=== PATIENT | female | born 1955 | race Caucasian/White ===

== ENCOUNTER 2022-11-25 13:47 | Outpatient (AMB) | payer OTHER, SELFPAY ==
[2022-11-25 13:53] VITALS: BP 150/80; PULSE 101; O2SAT 98; BMI 37.3
--- NOTE | 2022-11-25 13:53 | A.OFFPC_ITS ---
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: Patient is a new patient here to establish care Classification Analyst Required: No Allergies bees Allergy (Uncoded 11/25/22 15:37) Seizure Medication List - Last Reconciled 11/25/22 by ASHLEY Urbano albuterol sulfate 90 mcg/actuation inhalation albuterol sulfate 90 mcg/actuation (Ventolin HFA) 2 puffs inhalation BID amlodipine 10 mg PO DAILY atorvastatin 10 mg PO DAILY bupropion HCl 150 mg PO BID epinephrine 0.3 mL IM ONCE PRN fluticasone propion-salmeterol 230-21 mcg/actuation (Advair HFA) 2 puffs inhalation BID levothyroxine 100 mcg PO DAILY lisinopril 20 mg PO DAILY metformin 500 mg PO BID Tobacco use date assessed: 11/25/22 Fall risk assessment: No Falls in past year Last assessed Fall Risk: 11/25/22 Dental Screening Dental Screen Date: 11/25/22 Did you have a dental visit in the last 12 months?: No Did you have a dental problem in the last 6 months where you did not have access to dental care?: No 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 Previous PCP in [place], last visit about 1 year ago per patient, does not remember the doctor's name. Medical history significant for depression, hyperlipidemia, hypertension, prediabetes, arthritis of both knees-followed by [facility], asthma, hypothyroidism, fluid in left knee joint-drained 6 months ago by [facility] - needs new referral, heart murmur-reports normal echocardiogram in 1999, cigarette nicotine dependence-smokes 1.5 packs per day-would like to have nicotine patch, seasonal allergies. 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 Patient denies shortness of breath or chest pain. Patient reports eye exam last year, she will call for another eye exam this year. Patient is accompanied by her . [facility] Surgical History H/O knee surgery H/O neck surgery Family History Mother Ovarian cancer Father Heart attack Social History Housing: Apartment Patient Tobacco Use Status: Current everyday Tobacco user Cigarette Packs Per Day: 1.5 service: No Current occupational status: unemployed Cognitive needs: Yes Hearing needs: No Vision needs: Yes Questionnaire PHQ-9 Over the last 2 weeks, how often have you been bothered by any of the following problems? 1. Little interest or pleasure in doing things: several days 2. Feeling down, depressed, or hopeless: several days 3. Trouble falling or staying asleep, or sleeping too much: not at all 4. Feeling tired or having little energy: not at all 5. Poor appetite or overeating: not at all 6. Feeling bad about yourself - or that you are a failure or have let yourself or your family down: not at all 7. Trouble concentrating on things, such as reading the newspaper or watching television: not at all 8. Moving or speaking so slowly that other people could have noticed. Or the opposite - being so fidgety or restless that you have been moving around a lot more than usual: not at all 9. Thoughts that you would be better off or of hurting yourself in some way: not at all Total score: 2 Depression Screening Interpretation: Negative 98613 - PHQ-9 Billing: Yes Source: Developed by Drs. Rubens Quinones, Laurie Reaves, Sal Dasilva and colleagues, with an educational yovani from [employer]. Thrive Questionnaire Date Thrive assessed: 11/25/22 I am a: Patient What is your living situation today?: I have a steady place to live Within the past 12 months, did the food you bought not last and you didn't have the money to get more?: Never true Within the past 12 months, did you worry whether your food would run out before you got money to buy more?: Never true Do you have trouble paying for medicines?: No Do you have trouble getting transportation to medical appointments?: No Do you have trouble paying your heating and electricity bill?: No Do you have trouble taking care of your child, family member or friend?: No Do you have trouble with day-to-day activities such as bathing, preparing meals, shopping, managing finances, etc.?: No Are you currently unemployed and looking for a job?: No Are you interested in more education?: No Currently or been in a relationship where the following occur: no concerns reported AUDIT C Alcohol Use Questionnaire (AUDIT-C) 1. How often do you have a drink containing alcohol?: Monthly or less 2. How many drinks containing alcohol do you have on a typical day when you are drinking?: 1 or 2 3. How often do you have six or more drinks on one occasion?: Never Total Score: 1 Score Reviewed/Action Taken: No DIANELYS-7 AMB Questionnaire DIANELYS-7 Date DIANELYS - 7 assessed: 11/25/22 Feeling nervous, anxious, or on edge: 1 = Several days Not being able to stop or control worryin = Several days Worrying too much about different things: 0 = Not at all Trouble relaxin = Not at all Being so restless that it is hard to sit still: 0 = Not at all Becoming easily annoyed or irritable: 0 = Not at all Feeling afraid as if something awful might happen: 0 = Not at all Total DIANELYS-7 score (0-4 normal; 5-9 mild; 10-14 moderate; 15-21 severe): 2 Source: Developed by Drs. Rubens Quinones, Laurie Reaves, Sal Dasilva and colleagues, with an educational yovani from [employer]. DIANELYS-7 Assessment Billing DIANELYS-7 Assessment Tool: DIANELYS-7 Assessment [id number] Review of Systems Const Denies body aches, Denies chills, Denies fever(s) and Denies headache(s) Eyes Denies change in vision ENT Denies dizziness, Denies otalgia, Denies headache(s), Denies nasal discharge, Denies sinus pain and Denies sore throat Card Denies chest pain, Denies edema, Denies lightheadedness and Denies dyspnea Resp Denies cough, Denies dyspnea and Denies wheezing GI Denies constipation, Denies diarrhea, Denies nausea and Denies vomiting Denies dysuria Musc Denies myalgias and Reports arthralgias Skin/Breast Denies rash Neuro Denies dizziness and Denies headache(s) Aller/Immun Denies wheezing Physical exam (Primary Care) Vital Signs: Last Vital Signs Pulse 101 H 11/25/22 13:53 BP 150/80 H 11/25/22 13:53 Pulse Ox 98 11/25/22 13:53 Oxygen Delivery Method Room Air 11/25/22 13:53 BMI result Body Mass Index 37.3 Tobacco/Smoking Status: Tobacco use Status Tobacco use date assessed 11/25/22 11/25/22 13:55 Patient Tobacco Use Status Current everyday Tobacco 11/25/22 15:27 PHQ-9: PHQ-9 Score PHQ-9: Total score 2 11/25/22 15:37 Depression Screening Interpretation: Negative Thrive Assessment: Date of Thrive Assessment Date Thrive assessed 11/25/22 11/25/22 13:55 Currently or been in a relationship where the following occur: no concerns reported Const Other: Ambulates with a cane General: cooperative and no acute distress Orientation/consciousness: patient oriented x3 HENMT Head: Yes normocephalic and Yes atraumatic Ears: TM's normal bilaterally Face and sinus: Yes sinuses nontender Mouth: oropharynx normal and moist mucous membranes Throat: Yes posterior oropharynx normal Eyes General: appearance normal, both eyes and all related structures Pupils: Equal, round and reactive pupils present EOM: EOMs intact bilaterally Neck Neck: Yes normal visual inspection, Yes full ROM and Yes no lymphadenopathy Thyroid: Thyroid normal Resp Effort & Inspection: normal respiratory effort and able to speak in complete sentences Auscultation: clear to auscultation bilaterally, no crackles, no rales, no rhonchi and no wheezes Cardio Rate: regular rate Rhythm: regular rhythm Heart sounds: S1 normal heart sound present, S2 normal heart sound present and Murmur heart sound present systolic GI Palpation (GI): Soft to palpation, not firm, nontender, no guarding, not rigid and no hepatosplenomegaly Auscultation: normal bowel sounds General: No CVA tenderness Back/Spine/Pelvis Back: No CVA tenderness Skin General skin exam: no rashes or lesions noted Neuro General: patient oriented x3 Cranial nerves: Yes Equal, round and reactive pupils present Extrem General: Yes full ROM and No edema Results AMB Hemoglobin A1c 2 AMB Hemoglobin A1c 6.0 % Last Edit by ELVA Cee on 11/25/22 15:40 Assessment and Plan Assessment & Plan (1) Seasonal allergies: Code(s): J30.2 - Other seasonal allergic rhinitis Plan: Continue cetirizine daily (2) Cigarette nicotine dependence: Code(s): F17.210 - Nicotine dependence, cigarettes, uncomplicated Plan: Encouraged smoking cessation Nicotine patch sent (3) Heart murmur: Code(s): R01.1 - Cardiac murmur, unspecified Plan: Will obtain echocardiogram (4) Fluid in left knee joint: Code(s): M25.462 - Effusion, left knee Plan: Continue to follow-up with [facility] - referral given (5) Hypothyroidism: Code(s): E03.9 - Hypothyroidism, unspecified Plan: Levothyroxine 100 mcg daily Will check thyroid blood work (6) Asthma: Code(s): J45.909 - Unspecified asthma, uncomplicated Plan: Stable Continue albuterol inhaler and Advair (7) Prediabetes: Code(s): R73.03 - Prediabetes Plan: A1c 6.0 today Continue metformin 500 mg b.i.d. Low-carbohydrate diet Patient will call for an eye exam (8) Hypertension: Code(s): I10 - Essential (primary) hypertension Plan: Goal BP equal or less than 140/90 Patient reports that she forgot to take her blood pressure medications this morning Continue lisinopril and amlodipine Low-sodium diet and weight loss (9) Hyperlipidemia: Code(s): E78.5 - Hyperlipidemia, unspecified Plan: Continue atorvastatin Low-cholesterol diet (10) Depression: Code(s): F32.A - Depression, unspecified Qualifiers: Depression Type: other depression Qualified Code(s): F32.89 - Other specified depressive episodes Plan: Stable with bupropion b.i.d. (11) Encounter to establish care: Code(s): Z76.89 - Persons encountering health services in other specified circumstances Plan Follow-up in 2 months for PE and labs Orders: Orders AMB Hemoglobin A1c Today Z13.9 - Encounter for screening, unspecified Vitamin D 25-OH Total Today R73.03 - Prediabetes Complete Blood Count Auto Diff Today Z76.89 - Persons encountering health services in other specified circumstances Microalbumin, Random (w Creat) Today R73.03 - Prediabetes Vitamin B12 and Folate Today Z76.89 - Persons encountering health services in other specified circumstances TSH reflex Free T4 Today E03.9 - Hypothyroidism, unspecified Lipid Panel Today E78.5 - Hyperlipidemia, unspecified Comprehensive [place]. Panel Fast Today R73.03 - Prediabetes CA echo transthoracic complete Today R01.1 - Cardiac murmur, unspecified Referrals Orthopedics Referral M17.0 - Bilateral primary osteoarthritis of knee, M25.462 - Effusion, left knee Medications: New nicotine 1 patch transdermal DAILY 28 ea 0RF F17.210 - Nicotine dependence, cigarettes, uncomplicated cetirizine (All Day Allergy (cetirizine)) 10 mg PO DAILY 90 tabs 0RF J30.2 - Ot her seasonal allergic rhinitis Coding Level of Care Code New Pt Level 4 (25778) Diagnoses Seasonal allergies J30.2 Cigarette nicotine dependence F17.210 Heart murmur R01.1 Fluid in left knee joint M25.462 Hypothyroidism E03.9 Asthma J45.909 Prediabetes R73.03 Hypertension I10 Hyperlipidemia E78.5 Other depression F32.89 Depression Type: other depression Encounter to establish care Z76.89 Additional Codes DIANELYS-7 Assessment Billing - DIANELYS-7 Assessment Tool: DIANELYS-7 Assessment [id number] ([id number])
[2022-11-25 15:56] VITALS: BP 140/70
== END 2022-11-25 16:01 | disposition home or self-care (01) ==
PROVIDERS: PCP Physician Assistant; Visit Provider Nurse Practitioner Family
DX: R73.03 Prediabetes (principal); J30.2 Other seasonal allergic rhinitis; F17.210 Nicotine dependence, cigarettes, uncomplicated; R01.1 Cardiac murmur, unspecified; M25.462 Effusion, left knee; E03.9 Hypothyroidism, unspecified; J45.909 Unspecified asthma, uncomplicated; I10 Essential (primary) hypertension; E78.5 Hyperlipidemia, unspecified; F32.89 Other specified depressive episodes
CPT/HCPCS: 83036; 99204

== ENCOUNTER 2023-01-19 13:50 | Outpatient (REF) | payer OTHER, SELFPAY ==
[2023-01-19 14:04] LABS: MANUAL DIFF FLAG NO
[2023-01-19 14:08] LABS: Basophils Percent Auto 0.2 % (0-2); Eosinophils Absolute Auto 0.1 X10*3/uL (0.0-0.4); Hematocrit 36.2 % (37.0-47.0); Hemoglobin 11.6 g/dl (12.0-16.0); Imm Gran Abs Auto 0.04 X10*3/uL (0.00-0.03); Imm Gran Pct Auto 0.4 % (0.0-0.4); Lymphocytes Absolute Auto 1.8 X10*3/uL (1.2-4.9); Lymphocytes Percent Auto 18.5 % (20-40); Mean Corpuscular Hemoglobin 25.2 pg (27.0-33.0); Mean Corpuscular Volume 78.7 fL (80.0-98.0); Mean Platelet Volume 8.8 fL (9.4-12.3); Monocytes Absolute Auto 0.6 X10*3/uL (0.1-1.2); Monocytes Percent Auto 5.8 % (2-11); Neutrophils Absolute Auto 7.1 x10*3/uL (2.0-8.3); Neutrophils Percent Auto 74.1 % (45-73); Platelet Count 346 X10*3/uL (160-400); Red Cell Distribution Width 15.1 % (11.0-16.0); White Blood Count 9.6 X10*3/uL (4.8-10.8)
[2023-01-19 14:48] LABS: Alanine Aminotransferase 40 U/L (0-31); Alkaline Phosphatase 129 U/L (39-117); Anion Gap 10 (12-20); Aspartate Amino Transferase 21 U/L (5-31); Bilirubin Total 0.5 mg/dL (0.0-1.0); Blood Urea Nitrogen 7 mg/dL (9-16); Carbon Dioxide 30 mmol/L (22-29); Chloride 106 mmol/L (96-108); Cholesterol 133 mg/dL (<200); Estimated Glomerular Filt Rate > 60; Glucose Fasting 132 mg/dL (60-99); HDL Cholesterol 44 mg/dL (>40); LDL Cholesterol Calculated 73 mg/dL (<100); Potassium 4.4 mmol/L (3.3-5.1); Sodium 142 mmol/L (135-145); Triglycerides 83 mg/dL (<150)
[2023-01-19 15:04] LABS: TSH reflex Free T4 < 0.01 uIU/mL (0.32-4.0); Vitamin D 25-OH Total 41.4 ng/mL (>30)
[2023-01-19 15:39] LABS: Free T4 (Free Thyroxine) 1.41 ng/dL (0.71-1.85)
[2023-01-19 15:47] LABS: Folate 13.5 ng/mL (> or = 4.0); Vitamin B12 859 pg/mL (200-900)
[2023-01-19 15:49] LABS: Creatinine Urine 49.34 mg/dL; Microalbumin Urine < 5.0 mg/L
== END 2023-01-19 13:51 | disposition home or self-care (01) ==
LOC: HO.LAB 13:50
PROVIDERS: PCP Nurse Practitioner Family; Visit Provider Nurse Practitioner Family
DX: R73.03 Prediabetes (principal); E78.5 Hyperlipidemia, unspecified; E03.9 Hypothyroidism, unspecified; Z76.89 Persons encountering health services in other specified circumstances
CPT/HCPCS: 36415; 80053; 80061; 82306; 82570; 82607; 82746; 84439; 84443; 85025

== ENCOUNTER 2023-01-26 11:25 | Outpatient (AMB) | payer OTHER, SELFPAY ==
--- NOTE | 2023-01-26 11:35 | MHC.PC.OV ---
Vital Signs 01/26/23 11:36 Height 5 ft 2 in Weight 191 lb BMI 34.9 BP 130/82 Blood Pressure Location Lt brachial Position Sitting Pulse 83 Pulse Source Pulse Oximeter Pulse Oximetry (%) 98 Oxygen Delivery Method Room Air Intake Visit Reasons: pe Intake Note: Patient is here today for a physical. Director Social Welfare Required: No Allergies bees Allergy (Uncoded 01/26/23 11:54) Seizure Medication List - Last Reconciled 01/26/23 by ASHLEY Urbano albuterol sulfate 90 mcg/actuation inhalation albuterol sulfate 90 mcg/actuation (Ventolin HFA) 2 puffs inhalation BID amlodipine 10 mg PO DAILY atorvastatin 10 mg PO DAILY bupropion HCl 150 mg PO BID cetirizine (All Day Allergy (cetirizine)) 10 mg PO DAILY epinephrine 0.3 mL IM ONCE PRN fluticasone propion-salmeterol 230-21 mcg/actuation (Advair HFA) 2 puffs inhalation BID levothyroxine 100 mcg PO DAILY lisinopril 20 mg PO DAILY metformin 500 mg PO BID nicotine 1 patch transdermal DAILY Tobacco use date assessed: 01/26/23 Dental Screening Dental Screen Date: 01/26/23 Did you have a dental visit in the last 12 months?: Yes Did you have a dental problem in the last 6 months where you did not have access to dental care?: No Was dental information given to patient?: Patient has dentist HPI pe HPI Details Patient is a 57-year-old female who presents today for physical exam. Medical history significant for depression, hyperlipidemia, hypertension, diabetes type 2, arthritis of both knees-followed by [facility], asthma, hypothyroidism, heart murmur-has order for echocardiogram, cigarette nicotine dependence-smokes 1.5 packs per day for the past 22 years-will refer for low-dose chest CT scan, seasonal allergies. Today we discussed patient's need for mammogram, colon cancer screening. Patient will call for a diabetic eye exam. She reports normal Pap smear 2021 at [facility]. Recent blood work results reviewed with the patient. Denies shortness of breath or chest pain. [facility]LY [facility], [facility] Medical History (Updated 01/26/23 @ 12:25 by ASHLEY Urbano) Prediabetes Encounter to establish care Surgical History H/O knee surgery H/O neck surgery Family History Mother Ovarian cancer Father Heart attack Social History Housing: Apartment Patient Tobacco Use Status: Current everyday Tobacco user Cigarette Packs Per Day: 1.5 service: No Current occupational status: unemployed Cognitive needs: Yes Hearing needs: No Vision needs: Yes Questionnaire PHQ-9 Over the last 2 weeks, how often have you been bothered by any of the following problems? 1. Little interest or pleasure in doing things: not at all 2. Feeling down, depressed, or hopeless: not at all 3. Trouble falling or staying asleep, or sleeping too much: not at all 4. Feeling tired or having little energy: not at all 5. Poor appetite or overeating: not at all 6. Feeling bad about yourself - or that you are a failure or have let yourself or your family down: not at all 7. Trouble concentrating on things, such as reading the newspaper or watching television: not at all 8. Moving or speaking so slowly that other people could have noticed. Or the opposite - being so fidgety or restless that you have been moving around a lot more than usual: not at all 9. Thoughts that you would be better off or of hurting yourself in some way: not at all Total score: 0 Depression Screening Interpretation: Negative Depression Screening Done: Yes [id number] - PHQ-9 Billing: Yes Source: Developed by Drs. Rubens Quinones, Laurie Reaves, Sal Dasilva and colleagues, with an educational yovani from [employer]. Thrive Questionnaire Date Thrive assessed: 11/25/22 AUDIT C Alcohol Use Questionnaire (AUDIT-C) 1. How often do you have a drink containing alcohol?: Monthly or less 2. How many drinks containing alcohol do you have on a typical day when you are drinking?: 1 or 2 3. How often do you have six or more drinks on one occasion?: Never Total Score: 1 Score Reviewed/Action Taken: No DIANELYS-7 AMB Questionnaire DIANELYS-7 Date DIANELYS - 7 assessed: 01/26/23 Feeling nervous, anxious, or on edge: 0 = Not at all Not being able to stop or control worryin = Not at all Worrying too much about different things: 0 = Not at all Trouble relaxin = Not at all Being so restless that it is hard to sit still: 0 = Not at all Becoming easily annoyed or irritable: 0 = Not at all Feeling afraid as if something awful might happen: 0 = Not at all Total DIANELYS-7 score (0-4 normal; 5-9 mild; 10-14 moderate; 15-21 severe): 0 Source: Developed by Drs. Rubens uQinones, Laurie Reaves, Sal Dasilva and colleagues, with an educational yovani from [employer]. DIANELYS-7 Assessment Billing DIANELYS-7 Assessment Tool: DIANELYS-7 Assessment 31824 Review of Systems Const Denies body aches, Denies chills, Denies fever(s) and Denies headache(s) Eyes Denies change in vision ENT Denies dizziness, Denies otalgia, Denies headache(s), Denies nasal discharge, Denies sinus pain and Denies sore throat Card Denies chest pain, Denies edema, Denies lightheadedness and Denies dyspnea Resp Denies cough, Denies dyspnea and Denies wheezing GI Denies constipation, Denies diarrhea, Denies nausea and Denies vomiting Denies dysuria Musc Denies myalgias and Reports arthralgias Skin/Breast Denies rash Neuro Denies dizziness and Denies headache(s) Aller/Immun Denies wheezing Physical exam (Primary Care) Vital Signs: Last Vital Signs Pulse 83 01/26/23 11:36 BP 130/82 01/26/23 11:36 Pulse Ox 98 01/26/23 11:36 Oxygen Delivery Method Room Air 01/26/23 11:36 BMI result Body Mass Index 34.9 Tobacco/Smoking Status: Tobacco use Status Tobacco use date assessed 01/26/23 01/26/23 11:37 Patient Tobacco Use Status Current everyday Tobacco 01/26/23 11:37 PHQ-9: PHQ-9 Score PHQ-9: Total score 0 01/26/23 11:46 Depression Screening Interpretation: Negative Thrive Assessment: Date of Thrive Assessment Date Thrive assessed 11/25/22 01/26/23 11:37 Const General: cooperative and no acute distress Orientation/consciousness: patient oriented x3 HENMT Head: Yes normocephalic and Yes atraumatic Ears: TM's normal bilaterally Face and sinus: Yes sinuses nontender Mouth: oropharynx normal and moist mucous membranes Throat: Yes posterior oropharynx normal Eyes General: appearance normal, both eyes and all related structures Pupils: Equal, round and reactive pupils present EOM: EOMs intact bilaterally Neck Neck: Yes normal visual inspection, Yes full ROM and Yes no lymphadenopathy Thyroid: Thyroid normal Resp Effort & Inspection: normal respiratory effort and able to speak in complete sentences Auscultation: clear to auscultation bilaterally, no crackles, no rales, no rhonchi and no wheezes Cardio Rate: regular rate Rhythm: regular rhythm Heart sounds: S1 normal heart sound present, S2 normal heart sound present and Murmur heart sound present systolic GI Palpation (GI): Soft to palpation, not firm, nontender, no guarding, not rigid and no hepatosplenomegaly Auscultation: normal bowel sounds General: No CVA tenderness Back/Spine/Pelvis Back: No CVA tenderness Skin General skin exam: no rashes or lesions noted Neuro General: patient oriented x3 Cranial nerves: Yes Equal, round and reactive pupils present Extrem General: Yes full ROM and No edema Office Procedures Flu Questionnaire Does the patient have a severe egg allergy?: No Does the patient have severe life threatening allergies?: No Does the patient have a fever or illness today?: No Has the patient ever had Guillain-[place] Syndrome?: No Has the patient ever had any past reaction to a flu shot?: No Results AMB Hemoglobin A1c AMB Hemoglobin A1c 6.9 % Last Edit by ELVA Cee on 01/26/23 11:53 Immunizations flu vacc [id number] 6mos up(PF) 60 mcg(15 mcgx4)/0.5 mL IM syringe Performing Provider: ASHLEY Urbano [facility] Administered by: ELVA Cee on 01/26/23 11:52 Dose Route Admin Location Dispensed Lot Number Expiration Date [employer] 0.5 mL IM Left Deltoid 0.5 mL [id number] 08/29/23 [id number] [employer] VIS Given Date VIS Provided VIS Publication Date 01/26/23 Single Vaccine 20 Eligibility Eligibility Date Funding Source Not [facility] Eligible 01/26/23 Private Results Reviewed Results Reviewed: Laboratory Last Values Hgb A1c (Clinic) 6.9 % (4.0-6.0) H 01/26/23 09:40 Assessment and Plan Assessment & Plan (1) Seasonal allergies: Code(s): J30.2 - Other seasonal allergic rhinitis Plan: Continue cetirizine daily (2) Cigarette nicotine dependence: Code(s): F17.210 - Nicotine dependence, cigarettes, uncomplicated Plan: Encouraged smoking cessation Continue Nicotine patch Referral for low-dose chest CT scan (3) Hypothyroidism: Code(s): E03.9 - Hypothyroidism, unspecified Plan: TSH <0.01, free T4 1.41 12/2022 Decrease levothyroxine to 88 mcg daily Recheck thyroid blood work in 2 months (4) Asthma: Code(s): J45.909 - Unspecified asthma, uncomplicated Plan: Stable Continue albuterol inhaler and Advair (5) Hypertension: Code(s): I10 - Essential (primary) hypertension Plan: Goal BP equal or less than 140/90 Continue lisinopril and amlodipine Low-sodium diet and weight loss (6) Hyperlipidemia: Code(s): E78.5 - Hyperlipidemia, unspecified Plan: Continue atorvastatin Low-cholesterol diet (7) Depression: Code(s): F32.A - Depression, unspecified Qualifiers: Depression Type: other depression Qualified Code(s): F32.89 - Other specified depressive episodes Plan: Stable with bupropion b.i.d. (8) Diabetes type 2, controlled: Code(s): E11.9 - Type 2 diabetes mellitus without complications Plan: A1c 6.9 today, goal less than 7 Continue metformin b.i.d. Low-carbohydrate diet Patient will call for diabetic eye exam (9) Anemia: Code(s): D64.9 - Anemia, unspecified Plan: Hemoglobin 11.6 12/2022 Low MCV Start iron and vitamin-C for 2 months, recheck CBC in 2 months Iron blood work ordered (10) Screening for colon cancer: Code(s): Z12.11 - Encounter for screening for malignant neoplasm of colon (11) Screening for breast cancer: Code(s): Z12.39 - Encounter for other screening for malignant neoplasm of breast (12) Adult general medical exam: Code(s): Z00.00 - Encounter for general adult medical examination without abnormal findings Plan Follow-up in 3 months Orders: Orders AMB Hemoglobin A1c Today Z13.9 - Encounter for screening, unspecified Influenza [id number] Immunization Today Z23 - Encounter for immunization Complete Blood Count no Diff 2 Months D64.9 - Anemia, unspecified Lipid Panel 3 Months E78.5 - Hyperlipidemia, unspecified Comprehensive [place]. Panel Fast 3 Months E11.9 - Type 2 diabetes mellitus without complications MM tomosynthesis screening BI Today Z12.31 - Encounter for screening mammogram for malignant neoplasm of breast TSH reflex Free T4 2 Months E03.9 - Hypothyroidism, unspecified IRON PROFILE Today D64.9 - Anemia, unspecified Referrals Gastroenterology Referral Z12.11 - Encounter for screening for malignant neoplasm of colon Thoracic Surgery Referral F17.210 - Nicotine dependence, cigarettes, uncomplicated Medications: New ascorbic acid (vitamin C) 250 mg PO DAILY 60 tabs 0RF D64.9 - Anemia, unspecified levothyroxine 88 mcg PO DAILY 60 tabs 1RF E03.9 - Hypothyroidism, unspecified ferrous sulfate 325 mg PO DAILY 60 tabs 0RF D64.9 - Anemia, unspecified Refilled cetirizine (All Day Allergy (cetirizine)) 10 mg PO DAILY 90 tabs 0RF J30.2 - Other seasonal allergic rhinitis Coding Level of Care Code Est Pt Prev Care 40-64y(69653) Diagnoses Seasonal allergies J30.2 Cigarette nicotine dependence F17.210 Hypothyroidism E03.9 Asthma J45.909 Hypertension I10 Hyperlipidemia E78.5 Other depression F32.89 Depression Type: other depression Diabetes type 2, controlled E11.9 Anemia D64.9 Screening for colon cancer Z12.11 Screening for breast cancer Z12.39 Adult general medical exam Z00.00 Additional Codes DIANELYS-7 Assessment Billing - DIANELYS-7 Assessment Tool: DIANELYS-7 Assessment [id number] ([id number])
[2023-01-26 11:36] VITALS: BP 130/82; PULSE 83; O2SAT 98; BMI 34.9
== END 2023-01-26 13:38 | disposition home or self-care (01) ==
PROVIDERS: PCP Physician Assistant; Visit Provider Nurse Practitioner Family
DX: E11.9 Type 2 diabetes mellitus without complications (principal); Z23 Encounter for immunization
CPT/HCPCS: 83036; 90471; 90686; 99396

== ENCOUNTER 2023-04-29 13:27 | Outpatient (AMB) | payer MEDICARE, MEDICAID, SELFPAY ==
--- NOTE | 2023-04-29 13:31 | MHC.PC.OV ---
Vital Signs 04/29/23 13:32 Height 5 ft 2 in Weight 174 lb 2 oz BMI 31.8 BP 142/70 H Blood Pressure Location Lt brachial Position Sitting Pulse 95 Pulse Source Pulse Oximeter Pulse Oximetry (%) 97 Oxygen Delivery Method Room Air Intake Visit Reasons: Stopped Taking Meds d/t Nausea/F/U DM, thyroid Intake Note: Candie's patient is here for a medication follow-up. The patient has discontinued all medications as they were causing adverse reactions, making her feel unwell. [employer] Required: No Accompanied by: Self / Same As Patient Allergies bees Allergy (Uncoded 04/29/23 13:43) Seizure Medication List - Last Reconciled 04/29/23 by Ari Kirkpatrick PA-C albuterol sulfate 90 mcg/actuation (Ventolin HFA) 2 puffs inhalation BID amlodipine 10 mg PO DAILY ascorbic acid (vitamin C) 250 mg PO DAILY atorvastatin 10 mg PO DAILY bupropion HCl 150 mg PO BID cetirizine (All Day Allergy (cetirizine)) 10 mg PO DAILY epinephrine 0.3 mL IM ONCE PRN ferrous sulfate 325 mg PO DAILY fluticasone propion-salmeterol 230-21 mcg/actuation (Advair HFA) 2 puffs inhalation BID levothyroxine 88 mcg PO DAILY lisinopril 20 mg PO DAILY metformin 500 mg PO BID nicotine 1 patch transdermal DAILY Tobacco use date assessed: 04/29/23 Dental Screening Dental Screen Date: 04/29/23 Did you have a dental visit in the last 12 months?: Yes Did you have a dental problem in the last 6 months where you did not have access to dental care?: No Was dental information given to patient?: Patient has dentist HPI Stopped Taking Meds d/t Nausea/F/U DM, thyroid HPI Details Patient is a 57-year-old female here today for a follow-up visit. This the 1st time I am meeting this 57-year-old female with a past medical history significant for hypothyroidism, type 2 diabetes, asthma, hyperlipidemia, major depressive disorder, obesity. Concern--> has left knee pain and decreased range of motion. She reports she has arthritis in her left knee and would like to see an orthopedic for possible cortisone injection. .. Hypothyroidism: Most recent labs showing a very low TSH. Was on levothyroxine 88 mcg. Advised to recheck labs to evaluate for TSH and need for levothyroxine. Has lost a significant amount of weight since last office visit, seems to been unintentional. Wondering if due to thyroid. /.. Type 2 diabetes: Has lost a significant amount of weight since last office visit. Seems to have been unintentional. Has not been on metformin a couple months now. Today's A1c is 6.1. Will restart metformin. .. Tobacco dependency: She continues to smoke half pack a cigarettes. She would like to try nicotine gum which has been effective for her in the past. She does have a smoker she is 2. We did discuss lung cancer screening program as she has been a smoker since her teenage years though she declines my offers at this time. .. Laboratory Tests 11/25/22 01/19/23 01/26/23 15:34 14:02 09:40 Hgb A1c (Clinic) 6.0 6.9 H TSH < 0.01 L [facility] Medical History (Updated 04/29/23 @ 14:02 by Ari Kirkpatrick PA-C) Prediabetes Encounter to establish care Surgical History H/O knee surgery H/O neck surgery Family History Mother Ovarian cancer Father Heart attack Social History Housing: Apartment Patient Tobacco Use Status: Current everyday Tobacco user Cigarette Packs Per Day: 1.5 Cigarettes Per Day: 10 e-Cigarette/Vaping Use: Never Used service: No Current occupational status: unemployed Cognitive needs: Yes Hearing needs: No Vision needs: Yes Questionnaire PHQ-9 Over the last 2 weeks, how often have you been bothered by any of the following problems? 1. Little interest or pleasure in doing things: not at all 2. Feeling down, depressed, or hopeless: not at all 3. Trouble falling or staying asleep, or sleeping too much: not at all 4. Feeling tired or having little energy: not at all 5. Poor appetite or overeating: not at all 6. Feeling bad about yourself - or that you are a failure or have let yourself or your family down: not at all 7. Trouble concentrating on things, such as reading the newspaper or watching television: not at all 8. Moving or speaking so slowly that other people could have noticed. Or the opposite - being so fidgety or restless that you have been moving around a lot more than usual: not at all 9. Thoughts that you would be better off or of hurting yourself in some way: not at all Total score: 0 Depression Screening Interpretation: Negative Depression Screening Done: Yes 91540 - PHQ-9 Billing: Yes Source: Developed by Drs. Rubens Quinones, Laurie Reaves, Sal Dasilva and colleagues, with an educational yovani from [employer]. Thrive Questionnaire Date Thrive assessed: 04/29/23 I am a: Patient What is your living situation today?: I have a steady place to live Within the past 12 months, did the food you bought not last and you didn't have the money to get more?: Never true Within the past 12 months, did you worry whether your food would run out before you got money to buy more?: Never true Do you have trouble paying for medicines?: No Do you have trouble getting transportation to medical appointments?: No Do you have trouble paying your heating and electricity bill?: No Do you have trouble taking care of your child, family member or friend?: No Do you have trouble with day-to-day activities such as bathing, preparing meals, shopping, managing finances, etc.?: No Are you currently unemployed and looking for a job?: No Are you interested in more education?: No Please select the resources that you would like help with: None Currently or been in a relationship where the following occur: no concerns reported THRIVE Score: 0 AUDIT C Alcohol Use Questionnaire (AUDIT-C) 1. How often do you have a drink containing alcohol?: Monthly or less 2. How many drinks containing alcohol do you have on a typical day when you are drinking?: 1 or 2 3. How often do you have six or more drinks on one occasion?: Never Total Score: 1 DIANELYS-7 AMB Questionnaire DIANELYS-7 Date DIANELYS - 7 assessed: 04/29/23 Feeling nervous, anxious, or on edge: 0 = Not at all Not being able to stop or control worryin = Not at all Worrying too much about different things: 0 = Not at all Trouble relaxin = Not at all Being so restless that it is hard to sit still: 0 = Not at all Becoming easily annoyed or irritable: 0 = Not at all Feeling afraid as if something awful might happen: 0 = Not at all Total DIANELYS-7 score (0-4 normal; 5-9 mild; 10-14 moderate; 15-21 severe): 0 Source: Developed by Drs. Rubens Quinones, Laurie Reaves, Sal Dasilva and colleagues, with an educational yovani from [employer]. DIANELYS-7 Assessment Billing DIANELYS-7 Assessment Tool: DAINELYS-7 Assessment 07321 Review of Systems Const Denies headache(s) Eyes Denies loss of vision ENT Denies vertigo, Denies dizziness, Denies headache(s) and Denies sore throat Card Denies chest pain, Denies leg edema and Denies lightheadedness Resp Denies cough, Denies hemoptysis and Denies wheezing GI Denies abdominal pain, Denies melena, Denies constipation, Denies diarrhea and Denies vomiting Denies urinary frequency, Denies dysuria and Denies urinary urgency Musc Denies arthralgias, Denies joint swelling, Denies numbness and Denies tingling Neuro Denies Abnormal speech present, Denies behavioral changes, Denies vertigo, Denies dizziness, Denies headache(s), Denies loss of vision, Denies memory loss, Denies numbness and Denies tingling Psych Denies anxiety, Denies behavioral changes, Denies depression, Denies memory loss and Denies panic attacks Alessandro/Lymph Denies easy bleeding and Denies easy bruising Aller/Immun Denies wheezing Physical exam (Primary Care) Vital Signs: Last Vital Signs Pulse 95 04/29/23 13:32 BP 142/70 H 04/29/23 13:32 Pulse Ox 97 04/29/23 13:32 Oxygen Delivery Method Room Air 04/29/23 13:32 BMI result Body Mass Index 31.8 Tobacco/Smoking Status: Tobacco use Status Tobacco use date assessed 04/29/23 04/29/23 13:41 Patient Tobacco Use Status Current everyday Tobacco 04/29/23 13:41 e-Cigarette/Vaping Use Never Used 04/29/23 13:41 PHQ-9: PHQ-9 Score PHQ-9: Total score 0 04/29/23 14:09 Depression Screening Interpretation: Negative Thrive Assessment: Date of Thrive Assessment Date Thrive assessed 04/29/23 04/29/23 13:41 Currently or been in a relationship where the following occur: no concerns reported Const General: healthy appearing, no acute distress, alert and awake Nutritional Appearance: well nourished Orientation/consciousness: oriented to person, oriented to place and oriented to time HENMT Ears: TM's normal bilaterally General nose exam: Normal nasal mucous membranes and turbinates present Eyes Conjunctivae: conjunctivae normal Sclerae: sclerae normal Pupils: Equal, round and reactive pupils present Neck Neck: Yes no lymphadenopathy and Yes no JVD Thyroid: Thyroid normal Carotids: no bruits Resp Effort & Inspection: normal respiratory effort and not tachypneic Auscultation: no crackles, no rales, no rhonchi and no wheezes Cardio Rate: regular rate Rhythm: regular rhythm Heart sounds: no murmurs and normal S1 and S2 GI Palpation (GI): Soft to palpation, nontender, no hepatomegaly and no splenomegaly Auscultation: normal bowel sounds Skin General skin exam: no rashes or lesions noted and dry skin Neuro General: oriented to person, oriented to place and oriented to time Cranial nerves: Yes Equal, round and reactive pupils present Speech: No Abnormal speech present Gait exam (Neuro): Normal gait present Motor exam (neuro): no tremor noted Extrem Right upper extremity: full ROM Left upper extremity: full ROM Right lower extremity: full ROM; no edema Left lower extremity: full ROM; no edema Psych Mental Status: mental status grossly normal Speech and movement: Normal speech and movement present Affect: normal affect Attitude: cooperative Thought process: Normal thought process present Results AMB Hemoglobin A1c AMB Hemoglobin A1c 6.1 % Last Edit by HUGH Verduzco on 04/29/23 14:09 Results Reviewed Results Reviewed: Laboratory Last Values Hgb A1c (Clinic) 6.1 % (4.0-6.0) H 04/29/23 14:08 Assessment and Plan Assessment & Plan (1) Diabetes type 2, controlled: Code(s): E11.9 - Type 2 diabetes mellitus without complications Qualifiers: Diabetes mellitus complication status: with hyperglycemia Diabetes mellitus residential insulin use: without superintendent [employer] use Qualified Code(s): E11.65 - Type 2 diabetes mellitus with hyperglycemia Plan: Patient seems to have controlled type 2 diabetes. Today's A1c is 6.1. Advised to restart metformin for glycemic control. Advised on continuing the low carb and low sugar diet. Goal A1c is to remain below 7.0 (2) Hypothyroidism: Code(s): E03.9 - Hypothyroidism, unspecified Qualifiers: Hypothyroidism type: unspecified Qualified Code(s): E03.9 - Hypothyroidism, unspecified Plan: Most recent TSH low. Have noted a significant amount of weight loss since last office visit.. Will continue to hold off on levothyroxine for now. Will recheck TSH to evaluate need for levothyroxine. (3) Hypertension: Code(s): I10 - Essential (primary) hypertension Qualifiers: Hypertension type: primary hypertension Qualified Code(s): I10 - Essential (primary) hypertension Plan: Patient's blood pressure slightly elevated today in office. Advised her to restart lisinopril 20 mg and amlodipine. Goal blood pressure is to be below 140/90 (4) Hyperlipidemia: Code(s): E78.5 - Hyperlipidemia, unspecified Qualifiers: Hyperlipidemia type: mixed hyperlipidemia Qualified Code(s): E78.2 - Mixed hyperlipidemia Plan: Advised patient to restart her cholesterol medication atorvastatin 10. Will send for fasting lipid panel with goal LDL to be below 100. (5) Asthma: Code(s): J45.909 - Unspecified asthma, uncomplicated Qualifiers: Asthma complication type: uncomplicated Asthma persistence: unspecified Asthma severity: mild Qualified Code(s): J45.909 - Unspecified asthma, uncomplicated Plan: Patient reports her asthma is fairly well controlled, unfortunately continues to smoke cigarettes. She does use a maintenance inhaler on a daily basis that she reports is affective.. She does have Ventolin and allergy medication available to her. (6) Tobacco dependence: Code(s): F17.200 - Nicotine dependence, unspecified, uncomplicated Plan: Unfortunately she continues to smoke. She does understand she needs to quit smoking. She is interested in nicotine gum as it is helped her in the past quit smoking. We did talk about starting in the lung cancer screening program though she declines my offers at this time. (7) Osteoarthritis of left knee: Code(s): M17.12 - Unilateral primary osteoarthritis, left knee Qualifiers: Osteoarthritis type: primary Qualified Code(s): M17.12 - Unilateral primary osteoarthritis, left knee Plan: Reports she has been having some left knee pain and decreased range of motion. She would like to see orthopedic for cortisone injection has it has helped her in the past Orders: Orders TSH reflex Free T4 04/29/23 E03.9 - Hypothyroidism, unspecified Lipid Panel 04/29/23 E78.2 - Mixed hyperlipidemia Microalbumin, Random (w Creat) 04/29/23 I10 - Essential (primary) hypertension Comprehensive [place]. Panel Fast 04/29/23 E11.65 - Type 2 diabetes mellitus with hyperglycemia AMB Hemoglobin A1c 04/29/23 E11.9 - Type 2 diabetes mellitus without complications Referrals Orthopedics Referral M17.12 - Unilateral primary osteoarthritis, left knee Medications: New nicotine (polacrilex) (Nicorette) 4 mg buccal Q2H 30 days 110 ea 1RF F17.200 - Nicotine dependence, unspecified, uncomplicated omeprazole 20 mg PO DAILY 30 days 30 caps 0RF K21.9 - Gastro-esophageal reflux disease without esophagitis atorvastatin 10 mg PO DAILY 30 tabs 1RF E78.2 - Mixed hyperlipidemia amlodipine 10 mg PO DAILY 30 tabs 1RF E78.2 - Mixed hyperlipidemia Changed From albuterol sulfate 90 mcg/actuation (Ventolin HFA) 2 puffs inhalation BID J45.909 - Unspecified asthma, uncomplicated To albuterol sulfate 90 mcg/actuation (Ventolin HFA) 2 puffs inhalation BID 30 days 8.5 grams 1RF J45.909 - Unspecified asthma, uncomplicated From metformin 500 mg PO BID E11.65 - Type 2 diabetes mellitus with hyperglycemia To metformin 500 mg PO BID 30 days 60 tabs 1RF E11.65 - Type 2 diabetes mellitus with hyperglycemia From fluticasone propion-salmeterol 230-21 mcg/actuation (Advair HFA) 2 puffs inhalation BID J45.909 - Unspecified asthma, uncomplicated To fluticasone propion-salmeterol 230-21 mcg/actuation (Advair HFA) 2 puffs inhalation BID 30 days 12 grams 1RF J45.909 - Unspecified asthma, uncomplicated From lisinopril 20 mg PO DAILY I10 - Essential (primary) hypertension To lisinopril 20 mg PO DAILY 30 days 30 tabs 1RF I10 - Essential (primary) hypertension Discontinued nicotine Discontinued Reason: Doctor's Order 1 patch transdermal DAILY 28 ea 0RF F17.210 - Nicotine dependence, cigarettes, uncomplicated Coding Level of Care Code Est Pt Level 4 (95923) Diagnoses Controlled type 2 diabetes mellitus with hyperglycemia, without long-term current use of insulin E11.65 Diabetes mellitus complication status: with hyperglycemia Diabetes mellitus residential insulin use: without superintendent [employer] use Hypothyroidism, unspecified type E03.9 Hypothyroidism type: unspecified Primary hypertension I10 Hypertension type: primary hypertension Mixed hyperlipidemia E78.2 Hyperlipidemia type: mixed hyperlipidemia Mild asthma without complication, unspecified whether persistent J45.909 Asthma complication type: uncomplicated Asthma persistence: unspecified Asthma severity: mild Tobacco dependence F17.200 Primary osteoarthritis of left knee M17.12 Osteoarthritis type: primary Additional Codes DIANELYS-7 Assessment Billing - DIANELYS-7 Assessment Tool: DIANELYS-7 Assessment [id number] ([id number])
[2023-04-29 13:32] VITALS: BP 142/70; PULSE 95; O2SAT 97; BMI 31.8
== END 2023-04-29 14:20 | disposition home or self-care (01) ==
PROVIDERS: PCP Nurse Practitioner Family; Visit Provider Physician Assistant
DX: E11.65 Type 2 diabetes mellitus with hyperglycemia (principal); E03.9 Hypothyroidism, unspecified; I10 Essential (primary) hypertension; E78.2 Mixed hyperlipidemia; J45.909 Unspecified asthma, uncomplicated; F17.200 Nicotine dependence, unspecified, uncomplicated; M17.12 Unilateral primary osteoarthritis, left knee
CPT/HCPCS: 83036; 99214

== ENCOUNTER 2023-05-11 10:06 | Outpatient (AMB) | payer MEDICARE, MEDICAID, SELFPAY ==
[2023-05-11 10:30] VITALS: BMI 31.8
--- NOTE | 2023-05-11 10:30 | MHC.OFFVIS ---
Intake Vital Signs 05/11/23 10:30 Height 5 ft 2 in Weight 174 lb BMI 31.8 Intake Visit Reasons: New Pt - Left Knee Pain Intake Note: Bailee is a 57 year old female who presents as a new patient with Left knee pain and popping. Patient reports her pain has been going on for about 2 and a half years and is a 10 on the 1-10 pain scale. She reports using aspirin, ice, tylenol and ibuprofen with little help for her pain. She denies injury. She does have a history of cortisone injections which gave her minimal relief. She also underwent left knee arthroscopic surgery approximately 5 years ago at a hospital in [place]. The patient states that she got minimal relief from that procedure. She wishes to hold off on left total knee replacement surgery for as long as possible. Allergies bees Allergy (Uncoded 04/29/23 13:43) Seizure Medication List - Last Reconciled 05/11/23 by See Palafox MD albuterol sulfate 90 mcg/actuation (Ventolin HFA) 2 puffs inhalation BID 30 days amlodipine 10 mg PO DAILY ascorbic acid (vitamin C) 250 mg PO DAILY atorvastatin 10 mg PO DAILY bupropion HCl 150 mg PO BID cetirizine (All Day Allergy (cetirizine)) 10 mg PO DAILY epinephrine 0.3 mL IM ONCE PRN ferrous sulfate 325 mg PO DAILY fluticasone propion-salmeterol 230-21 mcg/actuation (Advair HFA) 2 puffs inhalation BID 30 days levothyroxine 88 mcg PO DAILY lisinopril 20 mg PO DAILY 30 days metformin 500 mg PO BID 30 days nicotine (polacrilex) (Nicorette) 4 mg buccal Q2H 30 days omeprazole 20 mg PO DAILY 30 days PFSH Medical History (Updated 04/29/23 @ 14:02 by Ari Kirkpatrick PA-C) Prediabetes Encounter to establish care Surgical History (Updated 05/11/23 @ 10:36 by Vicky Garcia CMA) H/O: hysterectomy (Unknown) H/O knee surgery H/O neck surgery Family History Mother Ovarian cancer Father Heart attack Social History Housing: Apartment Patient Tobacco Use Status: Current everyday Tobacco user Cigarette Packs Per Day: 1.5 Cigarettes Per Day: 10 e-Cigarette/Vaping Use: Never Used service: No Current occupational status: unemployed Cognitive needs: Yes Hearing needs: No Vision needs: Yes Physical Exam Vital Signs: BMI result Body Mass Index 31.8 Const Other: Well-nourished well-developed very friendly female awake alert and oriented x3 in no acute distress Extrem Other: Bilateral lower extremity examination shows good capillary refill, no skin lesions noted, normal sensation light touch Left knee examination shows a minimal effusion, palpable crepitus with range of motion, pain with range of motion, range of motion from -3 degrees to 115 degrees, no instability Results Reviewed Results Reviewed: X-rays of the patient's left knee show moderate to severe joint space narrowing, subchondral sclerosis, no acute bony abnormalities Assessment & Plan Assessment & Plan (1) Osteoarthritis of left knee: Code(s): M17.12 - Unilateral primary osteoarthritis, left knee Qualifiers: Osteoarthritis type: primary Qualified Code(s): M17.12 - Unilateral primary osteoarthritis, left knee Plan Ms. Alonzo presents with left knee pain due to degenerative joint disease. I had a lengthy discussion with the patient regarding the treatment options. She wishes to hold off on left total knee replacement surgery for as long as possible. I agree with this plan. She has not gotten good relief from cortisone injections or arthroscopic surgery. Thus, I will see whether not her insurance company will cover a viscosupplementation injection. I will see her back once the injection is available. Feel free to call me at any time should questions regarding her orthopedic management arise. Thank you very much for asking me to see this very friendly patient. I spent 22 minutes in reviewing the patient's records and imaging studies, seeing the patient and documenting in the medical record. Orders: Orders XR knee LT 3V Today M17.12 - Unilateral primary osteoarthritis, left knee Coding Level of Care Code New Pt Level 2 (15919) Diagnoses Primary osteoarthritis of left knee M17.12 Osteoarthritis type: primary
== END 2023-05-11 11:08 | disposition home or self-care (01) ==
PROVIDERS: PCP Nurse Practitioner Family; Visit Provider Orthopaedic Surgery
DX: M17.12 Unilateral primary osteoarthritis, left knee (principal)
CPT/HCPCS: 99202

== ENCOUNTER 2023-05-11 11:29 | Emergency (ER) | payer MEDICARE, MEDICAID, SELFPAY ==
--- NOTE | ~2023-05-11 | CT_ITS ---
EXAMINATION: CT HEAD WITHOUT CONTRAST CT FACIAL BONES WITHOUT CONTRAST CT CERVICAL SPINE WITHOUT CONTRAST CLINICAL INFORMATION: Headache. Head trauma. Fall. COMPARISON: None available. TECHNIQUE: Imaging was performed from the skull base to vertex without intravenous administration of contrast. In addition, helical noncontrast CT imaging was acquired through the cervical spine and facial bones and source images were reviewed along with axial reconstructions and sagittal and coronal MPRs. This CT examination was performed using dose optimization techniques as appropriate, variously including the following: *Automated exposure control. *Adjustment of mA and/or kV according to patient size (this includes techniques or standardized protocols for targeted exams where dose is matched to indication/reason for exam; i.e. extremities or head). *Use of iterative reconstruction technique. DLP: 1147 mGy-cm FINDINGS: Head: There is no evidence of acute intracranial hemorrhage or edematous territorial infarction. Alaniz-white matter differentiation is preserved. There is no abnormal attenuation within the brain parenchyma. The ventricles are normal in morphology and size. No evidence for obstructive hydrocephalus. No abnormal mass effect or midline shift. No extra-axial fluid collections. No acute soft tissue or osseous abnormalities. Maxillofacial Bones: No evidence of maxillofacial bone fractures. The zygomatic arches remain intact. No nasal bone fracture. The nasal septum remains midline. No evidence of mandibular or maxillary fracture. The mandibular condyles remain well-seated in their respective temporal articular grooves. Normal appearance of the intraconal and extraconal fat. No evidence of traumatic injury to the extraocular musculature or globes. Mild mucosal thickening of the paranasal sinuses. The mastoid air cells and middle ear cavities are clear. No layering fluid collections. Empty socket of the maxillary left 2nd premolar. Cervical Spine: Instrumented anterior fusion of C4-C6. Disc prosthesis in place at C3-C4. No evidence of hardware fracture or loosening. The atlantooccipital and atlantoaxial articulations remain well aligned. Moderate degenerative arthropathy of the atlantodental articulation. Straightening of the normal cervical lordosis. Mild degenerative stepwise anterolistheses of C7-T2. Otherwise, there is anatomic alignment of the vertebral bodies and posterior elements. No evidence of acute fracture or subluxation. The vertebral body heights are maintained. Advanced degenerative disc disease at C6-C7. Facet and uncovertebral joint arthropathy leads to osseous encroachment on the neural foramina from C2-C4 and C6-T3. There is no prevertebral soft tissue swelling. Moderate enlargement of a heterogeneous thyroid gland. The remaining cervical soft tissues are within normal limits. The lung apices demonstrate no abnormalities. CT/CT cervical spine wo IV con IMPRESSION: 1. No evidence of acute intracranial hemorrhage or edematous territorial infarction. 2. No evidence of acute fracture or traumatic subluxation of the cervical spine. Instrumented anterior fusion of C4-C6. Moderate multilevel degenerative spondyloarthropathy of the cervical spine. 3. No evidence of acute fracture of the maxillofacial bones. 4. Moderate enlargement of a heterogeneous thyroid gland. Recommend further characterization with thyroid ultrasound.
[2023-05-11 14:14] VITALS: BP 144/56; PULSE 91; RESP 16; TEMP 36.6; O2SAT 97; BMI 32.7
--- NOTE | 2023-05-11 14:26 | ED_ITS ---
HPI - General Adult General Chief complaint: Head Injury Stated complaint: Fall 05/01/23 - head pain Time Seen by Provider: 05/11/23 11:57 History of Present Illness HPI narrative: Left without completion of treatment Related Data Home Medications Medication Instructions Recorded Confirmed bupropion HCl 150 mg tablet,12 hr 150 mg PO BID 11/25/22 05/11/23 sustained-release epinephrine 0.3 mg/0.3 mL 0.3 ml IM ONCE PRN 11/25/22 05/11/23 injection, auto-injector Previous Rx's Medication Instructions Recorded cetirizine 10 mg tablet (All Day 10 mg PO DAILY #90 tabs 01/26/23 Allergy (cetirizine)) levothyroxine 88 mcg tablet 88 mcg PO DAILY #60 tabs 01/26/23 ascorbic acid (vitamin C) 250 mg 250 mg PO DAILY #60 tabs 03/22/23 tablet ferrous sulfate 325 mg (65 mg 325 mg PO DAILY #60 tabs 03/22/23 iron) tablet albuterol sulfate 90 mcg/actuation 2 puff inhalation BID 30 days #8.5 04/29/23 aerosol inhaler (Ventolin HFA) grams amlodipine 10 mg tablet 10 mg PO DAILY #30 tabs 04/29/23 atorvastatin 10 mg tablet 10 mg PO DAILY #30 tabs 04/29/23 fluticasone propionate 230 2 puff inhalation BID 30 days #12 04/29/23 mcg-salmeterol 21 mcg/actuation grams HFA inhaler (Advair HFA) lisinopril 20 mg tablet 20 mg PO DAILY 30 days #30 tabs 04/29/23 metformin 500 mg tablet 500 mg PO BID 30 days #60 tabs 04/29/23 nicotine (polacrilex) 4 mg gum 4 mg buccal Q2H 30 days #110 ea 04/29/23 (Nicorette) omeprazole 20 mg capsule,delayed 20 mg PO DAILY 30 days #30 caps 04/29/23 release Allergies Allergy/AdvReac Type Severity Reaction Status Date / Time bees Allergy Seizure Uncoded 04/29/23 13:43 [facility] Past Medical History Medical History (Updated 05/12/23 @ 13:16 by AURA Soares) Prediabetes Encounter to establish care Surgical History (Updated 05/11/23 @ 10:36 by Vicky Garcia CMA) H/O: hysterectomy (Unknown) H/O knee surgery H/O neck surgery Family History Family History Mother Ovarian cancer Father Heart attack Social History Social History Housing: Apartment Patient Tobacco Use Status: Current everyday Tobacco user Cigarette Packs Per Day: 1.5 Cigarettes Per Day: 10 e-Cigarette/Vaping Use: Never Used Advance Directives: No Advance Directives Information Provided: No service: No Current occupational status: unemployed Cognitive needs: Yes Hearing needs: No Vision needs: Yes Physical Exam ED Vital Signs: Vital Signs - 24 hr 05/11/23 14:14 Temperature 98 F Pulse Rate 91 Respiratory Rate 16 Blood Pressure 144/56 H Pulse Oximetry 97 Oxygen Delivery Method Room Air BMI result Body Mass Index 32.7 Course Course Course Narrative: RME: 57-year-old Female presents to the ED for headache. Patient fell on 30 of April with significant head trauma and has had headache ever since. Patient has nasal abrasions and worsening headache. Imaging ordered. Discharge Plan Discharge Clinical Impression: Closed head injury Patient Disposition: Left W/O Completing Treatment Prescriptions: No Action ascorbic acid (vitamin C) 250 mg tablet 250 mg PO DAILY Qty: 60 0RF ferrous sulfate 325 mg (65 mg iron) tablet 325 mg PO DAILY Qty: 60 0RF bupropion HCl 150 mg tablet sustained-release 12 hr 150 mg PO BID epinephrine 0.3 mg/0.3 mL auto-injector 0.3 ml IM ONCE PRN cetirizine [All Day Allergy (cetirizine)] 10 mg tablet 10 mg PO DAILY Qty: 90 0RF levothyroxine 88 mcg tablet 88 mcg PO DAILY Qty: 60 1RF nicotine (polacrilex) [Nicorette] 4 mg gum 4 mg buccal Q2H 30 Days Qty: 110 1RF omeprazole 20 mg capsule,delayed release(DR/EC) 20 mg PO DAILY 30 Days Qty: 30 0RF fluticasone propion-salmeterol [Advair HFA] 230-21 mcg/actuation HFA aerosol inhaler 2 puff inhalation BID 30 Days Qty: 12 1RF albuterol sulfate [Ventolin HFA] 90 mcg/actuation HFA aerosol inhaler 2 puff inhalation BID 30 Days Qty: 8.5 1RF metformin 500 mg tablet 500 mg PO BID 30 Days Qty: 60 1RF lisinopril 20 mg tablet 20 mg PO DAILY 30 Days Qty: 30 1RF amlodipine 10 mg tablet 10 mg PO DAILY Qty: 30 1RF atorvastatin 10 mg tablet 10 mg PO DAILY Qty: 30 1RF Discharge Date/Time: 05/11/23 21:25
--- NOTE | 2023-05-11 20:27 | PC.NURSE ---
called multiple times with no response.
== END 2023-05-11 21:25 | disposition left against medical advice (07) ==
LOC: HO.ED 20:34
PROVIDERS: Emergency Provider Emergency Medicine
DX: S09.90XA Unspecified injury of head, initial encounter (principal); R51.9 Headache, unspecified; M54.2 Cervicalgia; W01.10XA Fall on same level from slipping, tripping and stumbling with subsequent striking against unspecified object, initial encounter; Y93.9 Activity, unspecified; Y92.9 Unspecified place or not applicable; Y99.8 Other external cause status; Z79.899 Other long term (current) drug therapy
CPT/HCPCS: 70450; 70486; 72125; 99281; 99284

== ENCOUNTER 2023-05-11 14:48 | Outpatient (REF) | payer MEDICARE, MEDICAID, SELFPAY ==
--- NOTE | ~2023-05-11 | XR_ITS ---
EXAMINATION: XR KNEE, LEFT CLINICAL INFORMATION: Unilateral primary osteoarthritis left knee. COMPARISON: None available. TECHNIQUE: 3 views of the left knee. FINDINGS: Moderate joint effusion. The bones are diffusely demineralized. Moderate narrowing of the lateral greater than medial compartment. Small tricompartmental osteophytes. XR/XR knee LT 3V IMPRESSION: Moderate degenerative changes. Moderate joint effusion.
== END 2023-05-11 14:49 | disposition home or self-care (01) ==
LOC: HO.HOSX 14:48
PROVIDERS: Visit Provider Orthopaedic Surgery
DX: M17.12 Unilateral primary osteoarthritis, left knee (principal)
CPT/HCPCS: 73562; 99202

== ENCOUNTER 2023-06-01 12:26 | Outpatient (AMB) | payer MEDICARE, MEDICAID, SELFPAY ==
--- NOTE | 2023-06-01 12:37 | A.OFFVIS_ITS ---
Intake Intake Visit Reasons: Left knee #1 Euflexxa gel injecton Intake Note: Bailee is a 57 year old female who presents with complaints of progressively worsening left knee pain and swelling. Patient reports her pain has been going on for about 2 and a half years and is a 10 on the 1-10 pain scale. She reports using aspirin, ice, tylenol and ibuprofen with little help for her pain. She denies injury. She does have a history of cortisone injections which gave her minimal relief. She also underwent left knee arthroscopic surgery approximately 5 years ago at a hospital in [place]. The patient states that she got minimal relief from that procedure. She wishes to hold off on left total knee replacement surgery for as long as possible. Allergies bees Allergy (Uncoded 04/29/23 13:43) Seizure Medication List - Last Reconciled 06/01/23 by See Palafox MD albuterol sulfate 90 mcg/actuation (Ventolin HFA) 2 puffs inhalation BID 30 days amlodipine 10 mg PO DAILY ascorbic acid (vitamin C) 250 mg PO DAILY atorvastatin 10 mg PO DAILY bupropion HCl 150 mg PO BID cetirizine (All Day Allergy (cetirizine)) 10 mg PO DAILY epinephrine 0.3 mL IM ONCE PRN ferrous sulfate 325 mg PO DAILY fluticasone propion-salmeterol 230-21 mcg/actuation (Advair HFA) 2 puffs inhalation BID 30 days levothyroxine 88 mcg PO DAILY lisinopril 20 mg PO DAILY 30 days metformin 500 mg PO BID 30 days nicotine (polacrilex) (Nicorette) 4 mg buccal Q2H 30 days omeprazole 20 mg PO DAILY 30 days PFS Medical History (Updated 05/27/23 @ 05:29 by Chante Lion) Prediabetes Encounter to establish care Surgical History (Updated 05/11/23 @ 10:36 by Vicky Garcia CMA) H/O: hysterectomy (Unknown) H/O knee surgery H/O neck surgery Family History Mother Ovarian cancer Father Heart attack Social History Housing: Apartment Patient Tobacco Use Status: Current everyday Tobacco user Cigarette Packs Per Day: 1.5 Cigarettes Per Day: 10 e-Cigarette/Vaping Use: Never Used service: No Current occupational status: unemployed Cognitive needs: Yes Hearing needs: No Vision needs: Yes Physical Exam Const Other: Well-nourished well-developed very friendly female awake alert and oriented x3 in no acute distress Extrem Other: Bilateral lower extremity examination shows good capillary refill, no skin lesions noted, normal sensation light touch Left knee examination shows a moderate effusion, palpable crepitus with range of motion, pain with range of motion, no instability Office Procedures Joint Injection/Drain Joint Injection/Drain Primary Site: left knee Prep: site was prepped using aseptic technique Injected: 20 mg of (Euflexxa viscosupplementation) and 1% plain lidocaine Procedure: The patient tolerated the procedure well Coding - Large joint Procedure code (CPT) selection complete Results Reviewed Results Reviewed: X-rays of the patient's left knee show joint space narrowing, subchondral scle rosis, no acute bony abnormalities Assessment & Plan Assessment & Plan (1) Osteoarthritis of left knee: Code(s): M17.12 - Unilateral primary osteoarthritis, left knee Qualifiers: Osteoarthritis type: primary Qualified Code(s): M17.12 - Unilateral primary osteoarthritis, left knee Plan Ms. Alonzo presents with left knee pain due to degenerative joint disease. I had a lengthy discussion with the patient regarding the treatment options. She wishes to hold off on total knee replacement surgery for as long as possible. I agree with this plan. She has not gotten good relief from cortisone injections in the past. Thus, the risks and benefits of a series of left knee viscosupplementation injections were discussed at length with the patient. The patient wishes to proceed. She tolerated the 1st Euflexxa injection well. Prior to the injection 8 cc of clear fluid were aspirated from her left knee. She will continue with her activity modifications. She will follow up next week as scheduled. She will contact me prior to that time should any questions or concerns arise. I spent 22 minutes in reviewing the patient's records and imaging studies, seeing the patient and documenting in the medical record. Orders: Orders AMB Joint Injection/Aspiration Today M17.12 - Unilateral primary osteoarthritis, left knee Coding Level of Care Code Est Pt Level 2 (05961) Diagnoses Primary osteoarthritis of left knee M17.12 Osteoarthritis type: primary CPT Codes Coding - Large joint: 80227 - Large joint ([id number])
== END 2023-06-01 12:52 | disposition home or self-care (01) ==
PROVIDERS: Visit Provider Orthopaedic Surgery
DX: M17.12 Unilateral primary osteoarthritis, left knee (principal)
CPT/HCPCS: 20610; 99213

== ENCOUNTER → 2023-06-01 12:26 | Outpatient (BNVA) | payer MEDICARE, MEDICAID, SELFPAY | PROVIDERS: Visit Provider Orthopaedic Surgery | DX: M17.12 Unilateral primary osteoarthritis, left knee (principal) | CPT/HCPCS: 20610; 99212; J7323 ==

== ENCOUNTER 2023-06-08 13:44 | Outpatient (AMB) | payer MEDICARE, MEDICAID, SELFPAY ==
[2023-06-08 13:51] VITALS: BMI 32.7
--- NOTE | 2023-06-08 13:51 | MHC.OFFVIS ---
Intake Vital Signs 06/08/23 13:51 Height 5 ft 2 in Weight 179 lb BMI 32.7 Intake Visit Reasons: Left knee #2 Euflexxa gel injecion Intake Note: Bailee is a 57 year old female who presents for her #2 Left knee Euflexxa gel injection. She reports mild discomfort in her left knee. She denies any fevers or chills. She continues with her home exercise program. Allergies bees Allergy (Uncoded 04/29/23 13:43) Seizure Medication List - Last Reconciled 06/08/23 by See Palafox MD albuterol sulfate 90 mcg/actuation (Ventolin HFA) 2 puffs inhalation BID 30 days amlodipine 10 mg PO DAILY ascorbic acid (vitamin C) 250 mg PO DAILY atorvastatin 10 mg PO DAILY bupropion HCl SR 150 mg PO BID cetirizine (All Day Allergy (cetirizine)) 10 mg PO DAILY epinephrine 0.3 mL IM ONCE PRN ferrous sulfate 325 mg PO DAILY fluticasone propion-salmeterol 230-21 mcg/actuation (Advair HFA) 2 puffs inhalation BID 30 days levothyroxine 88 mcg PO DAILY lisinopril 20 mg PO DAILY 30 days metformin 500 mg PO BID 30 days nicotine (polacrilex) (Nicorette) 4 mg buccal Q2H 30 days omeprazole 20 mg PO DAILY 30 days PFSH Medical History Prediabetes Encounter to establish care Surgical History H/O: hysterectomy (Unknown) H/O knee surgery H/O neck surgery Family History Mother Ovarian cancer Father Heart attack Social History Housing: Apartment Patient Tobacco Use Status: Current everyday Tobacco user Cigarette Packs Per Day: 1.5 Cigarettes Per Day: 10 e-Cigarette/Vaping Use: Never Used service: No Current occupational status: unemployed Cognitive needs: Yes Hearing needs: No Vision needs: Yes Physical Exam Vital Signs: BMI result Body Mass Index 32.7 Extrem Other: Left knee examination shows a moderate effusion, palpable crepitus with range of motion, pain with range of motion, no instability Office Procedures Joint Injection/Drain Joint Injection/Drain Primary Site: left knee Prep: site was prepped using aseptic technique Injected: 20 mg of (Euflexxa viscosupplementation) and 1% plain lidocaine Procedure: The patient tolerated the procedure well Coding - Large joint Procedure code (CPT) selection complete Assessment & Plan Assessment & Plan (1) Osteoarthritis of left knee: Code(s): M17.12 - Unilateral primary osteoarthritis, left knee Qualifiers: Osteoarthritis type: primary Qualified Code(s): M17.12 - Unilateral primary osteoarthritis, left knee Plan Ms. Alonzo presents with left knee pain due to degenerative joint disease. I had a lengthy discussion with the patient regarding the treatment options. The risks and benefits of a 2nd Euflexxa injection were discussed at length with the patient. The patient wished to proceed. Prior to the injection 7 cc of clear fluid were aspirated from the patient's left knee. She tolerated the injection well. She will follow up next week as scheduled for her 3rd injection. Orders: Orders AMB Joint Injection/Aspiration Today M17.12 - Unilateral primary osteoarthritis, left knee Coding Level of Care Code Procedure Only Diagnoses Primary osteoarthritis of left knee M17.12 Osteoarthritis type: primary CPT Codes Coding - 11243 Large joint: 68389 - Large joint ([id number])
== END 2023-06-08 14:13 | disposition home or self-care (01) ==
LOC: HO.HOS 13:44
PROVIDERS: Visit Provider Orthopaedic Surgery
DX: M17.12 Unilateral primary osteoarthritis, left knee (principal)
CPT/HCPCS: 20610

== ENCOUNTER → 2023-06-08 13:44 | Outpatient (BNVA) | payer MEDICARE, MEDICAID, SELFPAY | PROVIDERS: Visit Provider Orthopaedic Surgery | DX: M17.12 Unilateral primary osteoarthritis, left knee (principal) | CPT/HCPCS: 20610; J7323 ==